=== PATIENT | male | born 2000 | race Caucasian/White ===

== ENCOUNTER 2019-01-27 14:39 | Emergency (ER) | payer MEDICAID, OTHER ==
[~2019-01-27] VITALS: Ht 152.4 cm; Wt 66.4 kg
[2019-01-27 14:52] VITALS: BP 123/58; PULSE 70; RESP 18; Ht 152.4 cm; Wt 66.4 kg
[2019-01-27] MEDS ORDERED: IBUP-1542 PO (16:55)
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
== END 2019-01-27 17:17 | disposition home or self-care (01) ==
LOC: FTE 14:39
DX: S00.83XA Contusion of other part of head, initial encounter (principal); Y04.2XXA Assault by strike against or bumped into by another person, initial encounter; Y92.9 Unspecified place or not applicable
CPT/HCPCS: 70450; 70486; Z7502